=== PATIENT | male | born 1995 | race Caucasian/White ===

== ENCOUNTER 2025-02-09 06:53 | Emergency (ER) | payer BC, SELFPAY ==
[2025-02-09 06:56] VITALS: BP 134/98
--- NOTE | 2025-02-09 07:29 | ED.GENMED ---
History of Present Illness
General
Chief Complaint: Abdominal Symptoms
Source: patient
Exam Limitations: none
Time Seen by Provider: 02/09/25 07:13
Nursing documentation reviewed up to this point in time: agreed with
History of Present Illness
History of Present Illness:
30 yo male with hx anxiety on Klonopin and Celexa presents for 2 episodes vomiting and diarrhea at 12 midnight and 4 a.m., none since. Ate Solorzano's at 11:30 pm, took one Zofran with some relief. Driving here saw a 'black spot' in left lateral
visual field that has completely resolved.
Past History
Past History
ED Past Medical History: Cancer (skin Ca) and Psychiatric (anxiety/depression)
Social History
Tobacco: Non-smoker
Alcohol: Occasional
Personal: Single
Living: with family
Employment: Employed
Review of Systems
Review of Systems
Allergies reviewed?: Yes
All Other Systems: ROS reviewed and negative except as documented in HPI and ROS
Constitutional: Denies fever or chills
EENT: Denies sore throat
Respiratory: Denies trouble breathing
Cardiac: Denies chest pain
ABD/GI: Reports nausea, vomiting and diarrhea; Denies abdominal pain, bloody stools or black stools
: Denies dysuria, frequency or difficulty voiding
Musculoskeletal: Reports no symptoms
Skin: Reports no symptoms
Neurological: Reports no symptoms
Phy Exam
Physical Exam
Physical Exam:
GENERAL: No acute distress. A&Ox3.
CONSTITUTIONAL: Afebrile.
EYES: clear, conjunctivae normal, good red reflex bilaterally, sharp optic disc and vessels
ENMT: moist mucus membranes, Pharynx nl
RESPIRATORY: Regular respirations, nonlabored, lungs clear.
CARDIOVASCULAR: Regular rate and rhythm, no murmurs, no rubs.
GI: Soft, nontender, normal BS
MUSCULOSKELETAL: Moves with ease. Well perfused.
SKIN: Warm, dry, pink
PSYCH: Normal mood and affect. Well kept, interactive and appropriate
NEUROLOGIC: Awake, alert and oriented. No focal neurological deficits
Course
Orders/Labs/Results
Orders:
Orders
02/09/25 07:28
Electrocardiogram (*1) Urgent
Reason for Study: QTc Monitoring
EKG- Treatment ONCE
02/09/25 07:58
Ondansetron Orally Disint [Zofran Odt (Orally Disintegrating)] 4 mg PO NOW STA
02/09/25 08:00
0.9% Sodium Chloride 1000 ml [Nss] 1,000 ml IV BOLUS
Ondansetron Injectable [Zofran] 4 mg IV NOW STA
02/09/25 08:22
Complete Blood Count/With Diff Urgent
02/09/25 09:07
Add On- LAB Urgent
Tests Added?: CMP
02/09/25 09:20
Comprehensive Metabolic Panel Routine
Comment: CANNOT ADD ON DRAW
Abnormal Lab Results
02/09/25 02/09/25
08:22 09:20
WBC 12.1 H 10^3/uL
(4.8-10.8)
Abs Immat Gran (auto) 0.1 H 10^3/uL
(0-0.05)
Absolute Neuts (auto) 11.1 H 10^3/uL
(1.4-6.5)
Absolute Lymphs (auto) 0.3 L 10^3/uL
(1.2-3.4)
Neutrophils % 91.7 H %
(42.2-75.2)
Lymphocytes % 2.2 L %
(20.5-51.1)
Glucose 121 H mg/dl
(70-99)
02/09/25 08:22
02/09/25 09:20
Vital Signs
Initial and Last Documented VS:
Initial Vital Signs
Temp Pulse Resp BP Pulse Ox
98.3 F 109 16 134/98 98
02/09/25 06:56 02/09/25 06:56 02/09/25 06:56 02/09/25 06:56 02/09/25 06:56
Last Documented Vital Signs
Temp Pulse Resp BP Pulse Ox
98.3 F 109 16 134/98 99
02/09/25 06:56 02/09/25 08:30 02/09/25 06:56 02/09/25 06:56 02/09/25 08:30
MDM/Problems Addressed
Differential Diagnosis Includes:
inflammatory vs bacterial vs viral GI illness.
MDM/Problems Addressed:
30 yo male with hx anxiety on Klonopin and Celexa presents for 2 episodes vomiting and diarrhea at 12 midnight and 4 a.m., none since. Ate Solorzano's at 11:30 pm, took one Zofray with some relief. Driving here saw a 'black spot' in left lateral
visual field that has completely resolved.
EKG: sinus tachy rate 114 with normal QT interval
8:00 a.m.
Feels nauseous, states he had another diarrheal stool, not observed
8:45 AM:
CBC: normal WBC with left shift
CMP normal
9:45 a.m.
After IV, Zofran, Pt with no vomiting, no further diarrhea, appears well
Ambulated out with normal gait at discharge
*EKG
EKG Intrepretation Date: 02/09/25
Interpretation: abnormal
Heart Rate: 114
Rate: tachycardiac
Rhythm: sinus
[place]: normal axis
Interval: normal interval
QRS Pattern: normal QRS
Ischemia: no ischemia
*Critical Care Note
Total Time (30-74mins, 75-104mins- exclusive of procedures): Not Applicable
ED Attending Note
-
Portions of this chart may have been created with voice recognition software.� Occasional wrong word or��sound alike� substitutions may have occurred due to the inherent limitations of voice recognition software.
Discharge Plan
Departure
Patient Disposition: Home (Routine Discharge)
Date of Disposition: 02/09/25
Time of Disposition: 09:57
Patient with high blood pressure during this ER visit?: No
Condition: Good
Discharge Problem:
Gastroenteritis
Instructions: Food poisoning, Viral gastroenteritis in adults, Clear Liquid Diet
Prescriptions:
New
ondansetron 4 mg tablet,disintegrating
4 mg PO Q8H PRN (Reason: nausea and vomiting) 4 Days Qty: 10 0RF
Referrals:
Samantha Leos DO [Family Provider] - As needed
Trip Funes MD [Active] - Next open appointment
Activity Restrictions/Additional Instructions:
As we discussed, nothing worrisome in your workup here today. You most likely have a viral gastroenteritis or possibly food poisoning from the Sol[employer] food last night (although less likely).
He can use the Zofran (Odanestron) as needed for nausea.
Drink plenty of fluids.
See your doctor in 3-5 days if not much better.
I have provided you the name of a GI doctor to use if you wish for your stomach issues.
Interventions
Interventions:
*Risk Screen - Suicide Last Done: 02/09/25 06:56
*General Assessment Last Done: 02/09/25 08:31
*Neglect/Abuse Screening Last Done: 02/09/25 06:56
*ED- Fall Risk Assessment Last Done: 02/09/25 08:31
*ED COVID-19 Vaccine History Last Done: 02/09/25 08:31
*Nursing Disposition Last Done: 02/09/25 10:15
YZ-Gqgqeo-Riuijkalhk Assessment Last Done: 02/09/25 09:00
Discharge Date and Time
Discharge Date/Time: 02/09/25 11:05
Print Language: KOSOVAN
[2025-02-09 08:11] VITALS: BMI 26.5
[2025-02-09] MEDS: NSS 1000 IV (08:19)
[2025-02-09] MEDS: ZOFRAN 4 MG IV (08:19)
[2025-02-09 08:36] LABS: % Basophils 0.3 % (0-2); % Eosinophils 0.4 % (0-6); % Immature Granulocytes 0.5 % (0-0.5); % Lymphocytes 2.2 % (20.5-51.1); % Monocytes 4.9 % (1.7-9.3); % Neutrophils 91.7 % (42.2-75.2); Absolute Eosinophils 0.1 10^3/uL (0-0.7); Absolute Immature Granulocytes 0.1 10^3/uL (0-0.05); Absolute Lymphocytes 0.3 10^3/uL (1.2-3.4); Absolute Monocytes 0.6 10^3/uL (0.1-0.6); Absolute Neutrophils 11.1 10^3/uL (1.4-6.5); Hematocrit 47.9 % (39.0-52.0); Hemoglobin 17.4 g/dL (13.0-18.0); Mean Corp Hgb Conc. 36.3 g/dL (33.0-37.0); Mean Corpuscular Hgb 29.9 pg (27.0-31.0); Mean Corpuscular Volume 82.3 fL (80.0-94.0); Mean Platelet Volume 9.9 fL (7.4-10.4); Nucleated Red Blood Cells % 0 % (-); Platelet Count 168 10^3/uL (130-400); Red Blood Cell Count 5.82 10^6/uL (4.70-6.10); Red Cell Dist. Width 11.9 % (11.5-14.5); White Blood Cell Count 12.1 10^3/uL (4.8-10.8)
[2025-02-09 09:42] LABS: ALT (SGPT) 35 U/L (0-50); AST (SGOT) 25 U/L (17-59); Alkaline Phosphatase 73 U/L (38-126); Blood Urea Nitrogen 17 mg/dl (9-20); Calcium 9.9 mg/dl (8.4-10.2); Carbon Dioxide 27 mmol/L (22-30); Chloride 101 mmol/L (98-107); Estimated Creatinine Clearance > 125 ml/min; Glucose 121 mg/dl (70-99); Potassium 4.3 mmol/L (3.5-5.1); Sodium 139 mmol/L (135-145); Total Bilirubin 0.9 mg/dl (0.2-1.3); Total Protein 8.1 g/dl (6.3-8.2); eGFR > 60.00
== END 2025-02-09 11:05 | disposition home or self-care (01) ==
LOC: EMR 06:53
PROVIDERS: Registered Nurse; EMERGENCY PHYSICIAN Emergency Medicine; FAMILY PHYSICIAN Student in an Organized Health Care Education/Training Program
DX: K52.9 Noninfective gastroenteritis and colitis, unspecified (principal); F41.9 Anxiety disorder, unspecified; Z85.828 Personal history of other malignant neoplasm of skin
CPT/HCPCS: 99283; 80053; 85025; 93005

== ENCOUNTER 2025-02-17 04:38 | Emergency (ER) | payer BC, SELFPAY ==
[2025-02-17 04:40] VITALS: BP 140/84
[2025-02-17] MEDS: BENADRYL 50 MG PO (04:59)
[2025-02-17 05:17] LABS: Hemoglobin 18.7 g/dL (13.0-18.0); Mean Corp Hgb Conc. 36.7 g/dL (33.0-37.0); Mean Corpuscular Volume 81.9 fL (80.0-94.0); Mean Platelet Volume 9.5 fL (7.4-10.4); Platelet Count 269 10^3/uL (130-400); Red Blood Cell Count 6.23 10^6/uL (4.70-6.10); Red Cell Dist. Width 11.9 % (11.5-14.5); White Blood Cell Count 10.9 10^3/uL (4.8-10.8)
[2025-02-17 05:49] LABS: ALT (SGPT) 40 U/L (0-50); AST (SGOT) 29 U/L (17-59); Albumin 4.7 g/dl (3.5-5.0); Alkaline Phosphatase 66 U/L (38-126); Blood Urea Nitrogen 22 mg/dl (9-20); Calcium 10.2 mg/dl (8.4-10.2); Carbon Dioxide 23 mmol/L (22-30); Chloride 103 mmol/L (98-107); Glucose 152 mg/dl (70-99); Potassium 3.8 mmol/L (3.5-5.1); Sodium 140 mmol/L (135-145); Total Bilirubin 0.7 mg/dl (0.2-1.3); Total Protein 7.7 g/dl (6.3-8.2); eGFR > 60.00
[2025-02-17 07:08] LABS: Absolute Neutrophils -Man Diff 4.3 10^3/uL (1.4-6.5); Atypical Lymphocytes 14 %; Band Neutrophils 1 % (0-3); Lymphocytes 43 % (20-51); Monocytes 3 % (2-9); Segmented Neutrophils 39 % (42-75)
[2025-02-17 07:09] LABS: Normal RBC Morphology Yes; Platelets Checked Yes; Total Cells Counted 100
--- NOTE | 2025-02-17 07:59 | ED.GENMED ---
History of Present Illness
General
Chief Complaint: Skin Problem
Time Seen by Provider: 02/17/25 07:38
History of Present Illness
History of Present Illness:
30-year-old male presents the emergency department for evaluation of constipation. He states he woke up with abdominal cramping and felt bloated, he was unable to pass stool. On arrival to the ED he was noted to be diaphoretic and flushed. He was
given diphenhydramine in triage, while waiting in the emergency department waiting he went to the bathroom and passed a large volume of stool and now feels better. States he longer feels flushed or sweaty. Still has mild residual abdominal
discomfort but denies any other complaints
Past History
Past History
ED Past Medical History: Cancer (skin Ca) and Psychiatric (anxiety/depression)
Social History
Tobacco: Non-smoker
Alcohol: Occasional
Personal: Single
Living: with family
Employment: Employed
Review of Systems
Review of Systems
Allergies reviewed?: Yes
All Other Systems: ROS reviewed and negative except as documented in HPI and ROS
Phy Exam
Physical Exam
Physical Exam:
GEN: Well appearing, NAD, WDWN
HEENT: Oral mucosa moist, no scleral icterus
Cardiac: Regular rate
Lung: No respiratory distress, no tachypnea
Abdomen: Soft, grossly nontender, nondistended
MSK: No gross deformity or injuries
Skin: Good color, no pallor or jaundice, No visible rashes or overt erythema
Neuro: AO x3, moves all extremities freely
Psych: Calm, cooperative
Course
Orders/Labs/Results
Orders:
Orders
02/17/25 04:53
Diphenhydramine [Benadryl] 50 mg .ROUTE .STK-MED ONE
02/17/25 04:54
CMP [Comprehensive Metabolic Panel] Urgent
Complete Blood Count/With Diff Urgent
Manual Differential Urgent
02/17/25 04:58
Diphenhydramine [Benadryl] 50 mg PO NOW STA
Abnormal Lab Results
02/17/25
04:54
WBC 10.9 H 10^3/uL
(4.8-10.8)
RBC 6.23 H 10^6/uL
(4.70-6.10)
Hgb 18.7 H g/dL
(13.0-18.0)
Segmented Neutrophils 39 L %
(42-75)
BUN 22 H mg/dl
(9-20)
Glucose 152 H mg/dl
(70-99)
02/17/25 04:54
02/17/25 04:54
Vital Signs
Initial and Last Documented VS:
Initial Vital Signs
Temp Pulse Resp BP Pulse Ox
97.8 F 120 22 140/84 95
02/17/25 04:40 02/17/25 04:40 02/17/25 04:40 02/17/25 04:40 02/17/25 04:40
Last Documented Vital Signs
Temp Pulse Resp BP Pulse Ox
98.7 F 92 17 138/73 97
02/17/25 08:12 02/17/25 08:12 02/17/25 08:12 02/17/25 08:12 02/17/25 08:12
MDM/Problems Addressed
MDM/Problems Addressed:
Patient had a bowel movement in the waiting room but symptoms resolved. Unclear etiology to flushing and reported rash however it is not present on my evaluation. Certainly could have been secondary to abdominal symptoms. He is noted to have
mildly increased hemoglobin BUN likely indicative of dehydration, increased fluids advised at home
*Critical Care Note
Total Time (30-74mins, 75-104mins- exclusive of procedures): Not Applicable
ED Attending Note
-
Portions of this chart may have been created with voice recognition software.� Occasional wrong word or��sound alike� substitutions may have occurred due to the inherent limitations of voice recognition software.
Discharge Plan
Departure
Patient Disposition: Home (Routine Discharge)
Date of Disposition: 02/17/25
Time of Disposition: 08:03
Patient with high blood pressure during this ER visit?: Yes
Discharge Problem:
Constipation
Instructions: Constipation, Adult (DC)
Prescriptions:
No Action
ondansetron 4 mg tablet,disintegrating
4 mg PO Q8H PRN (Reason: nausea and vomiting) 4 Days Qty: 10 0RF
Activity Restrictions/Additional Instructions:
Please increase fluids at home as dehydration often contributes to constipation
If the skin flushing/rash worsens, please follow up with your primary doctor or return for re-evaluation
Interventions
Interventions:
*Risk Screen - Suicide Last Done: 02/17/25 04:40
*Neglect/Abuse Screening Last Done: 02/17/25 04:40
*Nursing Disposition Last Done: 02/17/25 08:13
Discharge Date and Time
Discharge Date/Time: 02/17/25 08:21
Print Language: SINHALA
[2025-02-17 08:12] VITALS: BP 138/73
== END 2025-02-17 08:21 | disposition home or self-care (01) ==
LOC: EMR 04:38
PROVIDERS: Emergency Medicine; EMERGENCY PHYSICIAN Emergency Medicine; FAMILY PHYSICIAN Student in an Organized Health Care Education/Training Program
DX: K59.00 Constipation, unspecified (principal); R03.0 Elevated blood-pressure reading, without diagnosis of hypertension
CPT/HCPCS: 99283; 80053; 85025